=== PATIENT | female | born 1975 | race Caucasian/White ===

== ENCOUNTER → 2021-02-04 | Outpatient (CLI) | payer BC ==
[~2021-02-04] MED LIST: ALDACTONE25 MG PO; COZAAR100 MG PO; CYMBALTA30 MG PO; CYMBALTA60 MG PO; FIORICET PO; LINZESS145 MCG PO; LINZESS290 MCG PO; LODINE CAP 300300 MG PO; PROTONIX40 MG PO; ULTRAM50 MG PO; ZANAFLEX4 MG PO
== END ==
LOC: KOH-I 14:53
DX: J32.9 Chronic sinusitis, unspecified (principal)
CPT/HCPCS: 70486

== ENCOUNTER 2021-04-19 22:59 | Emergency (ER) | payer BC ==
[2021-04-20 00:10] LABS: HEMOGLOBIN 11.5 gm/dl (12.3-15.3); RED BLOOD COUNT 3.94 M/UL (4.00-5.10); WHITE BLOOD COUNT 10.7 K/UL (4.5-11.0)
[2021-04-20 00:30] LABS: BUN/CREATININE RATIO 17 (0-10)
== END 2021-04-20 03:30 | disposition home or self-care (01) ==
LOC: ER1 22:59
PROVIDERS: Student in an Organized Health Care Education/Training Program
DX: I47.1 Supraventricular tachycardia (principal); Z79.84 Long term (current) use of oral hypoglycemic drugs; Z79.899 Other long term (current) drug therapy; Z20.822 Contact with and (suspected) exposure to COVID-19
CPT/HCPCS: 71045; 80053; 81001; 82550; 82553; 83874; 84439; 84443; 84484; 85025; 85379; 99285; J0153; Q9967; U0002

== ENCOUNTER → 2021-05-04 | Outpatient (CLI) | payer BC | LOC: ECHO 09:00 | DX: I47.1 Supraventricular tachycardia (principal) | CPT/HCPCS: ECHO; 93306 ==

== ENCOUNTER 2021-06-27 13:19 | Emergency (ER) | payer BC ==
[2021-06-27 13:55] LABS: HEMOGLOBIN 16.3 gm/dl (12.3-15.3); RED BLOOD COUNT 5.1 M/UL (4.00-5.10); WHITE BLOOD COUNT 9.8 K/UL (4.5-11.0)
[2021-06-27 15:14] LABS: BUN/CREATININE RATIO 10 (0-10)
== END 2021-06-27 15:30 | disposition home or self-care (01) ==
LOC: ER1 13:19
PROVIDERS: Student in an Organized Health Care Education/Training Program
DX: I47.9 Paroxysmal tachycardia, unspecified (principal)
CPT/HCPCS: 71045; 80053; 82550; 82553; 83735; 83874; 84439; 84443; 84484; 85025; 93005; 99285; J0153

== ENCOUNTER → 2021-07-08 | Outpatient (CLI) | payer BC ==
[~2021-07-08] MED LIST changes: +BUSPAR 10MG10 MG PO; +DEXILANT60 MG PO; +DILTIAZEM 24HR180 M1 PO; +DITROPAN XL5 MG PO; +DUPIXENT300 MG/2 M SQ; +FAMOTIDINE20 MG PO; +FERROCITE324 MG PO; +FLUOXETINE HCL10 M1 PO; +FOLIC ACID1 MG PO; +GABAPENTIN600 MG PO; +KLONOPIN0.5 MG PO; +METFORMIN HCL1000 MG PO; +METHOTREXATE T2.5 MG PO; +METOPROLOL TART25 MG PO; +MOBIC15 MG PO; +NITROGLYCERIN0.4 MG SL; +OZEMPIC1 MG/0.71 SQ; +WELLBUTRIN XL150 MG PO; +XYZAL5 MG PO
[2021-07-08 18:27] LABS: HEMOGLOBIN 13.6 gm/dl (12.3-15.3); RED BLOOD COUNT 4.38 M/UL (4.00-5.10); WHITE BLOOD COUNT 7.9 K/UL (4.5-11.0)
[2021-07-08 19:05] LABS: BUN/CREATININE RATIO 20 (0-10)
== END ==
LOC: LAB 17:52
PROVIDERS: Nurse Practitioner Family
DX: I47.1 Supraventricular tachycardia (principal); R00.2 Palpitations
CPT/HCPCS: 80048; 85025

== ENCOUNTER → 2021-08-06 | Outpatient (CLI) | payer BC | LOC: KOH-I 08:00 | DX: N13.30 Unspecified hydronephrosis (principal); N20.0 Calculus of kidney; N83.201 Unspecified ovarian cyst, right side; K59.00 Constipation, unspecified | CPT/HCPCS: 74176 ==

== ENCOUNTER → 2021-09-16 | Day surgery (SDC) | payer BC | END | disposition home or self-care (01) | LOC: OR 07:05 | DX: K59.09 Other constipation (principal); K64.8 Other hemorrhoids; K75.81 Nonalcoholic steatohepatitis (NASH); K74.60 Unspecified cirrhosis of liver; R14.0 Abdominal distension (gaseous); E66.01 Morbid (severe) obesity due to excess calories; I10 Essential (primary) hypertension; J45.909 Unspecified asthma, uncomplicated; Z88.8 Allergy status to other drugs, medicaments and biological substances; Z98.51 Tubal ligation status; Z20.822 Contact with and (suspected) exposure to COVID-19 | CPT/HCPCS: J2704; J7040 ==

== ENCOUNTER → 2022-01-01 | Outpatient (CLI) | payer BC | LOC: CT 09:04 | DX: D50.9 Iron deficiency anemia, unspecified (principal); E53.8 Deficiency of other specified B group vitamins; E55.9 Vitamin D deficiency, unspecified; K59.00 Constipation, unspecified | CPT/HCPCS: 36415; 82565; 84520; Q9967 ==